=== PATIENT | female | born 2000 | race Caucasian/White ===

== ENCOUNTER 2021-01-12 13:53 | Emergency (ER) | payer SELFPAY ==
[~2021-01-12] VITALS: Ht 160 cm; Wt 65.9 kg
[2021-01-12 14:03] VITALS: TEMP 97.7
[2021-01-12 14:24] LABS: COLLECTION METHOD CLEAN CATCH
[2021-01-12 14:32] LABS: MUCOUS Present /lpf; PH 9 (5-8); URINE APPEARANCE Turbid; URINE BACTERIA None Seen /hpf; URINE BILIRUBIN Negative (NEGATIVE); URINE BLOOD 3+ (NEGATIVE); URINE COLOR Amber; URINE GLUCOSE Negative (NEGATIVE); URINE KETONE Negative (NEGATIVE); URINE LEUKOCYTE ESTERASE 2+ (NEGATIVE); URINE NITRATE Negative (NEGATIVE); URINE PROTEIN(semi-quant) 2+ (NEGATIVE); URINE RBC >50 /hpf; URINE UROBILINOGEN Negative (NEGATIVE)
[2021-01-12 14:33] LABS: BASO % 0.2 % (0.0-2.0); EOS # 0.1 (0.0-0.7); EOS % 0.4 % (0-4.0); GRAN # 10.6 (1.4-6.5); GRAN % 85.3 % (42.2-75.2); HEMATOCRIT 38.3 % (35.0-45.0); LYMPH # 1.1 (1.2-3.4); LYMPH % 9.1 % (20.0-51.0); MEAN CELL VOLUME 90 fl (80.0-95.0); MEAN CORPUSCULAR HEMOGLOBIN 31 pg (26.0-32.0); MEAN CORPUSCULAR HGB CONC 34 g/dl (33.0-37.0); MEAN PLATELET VOLUME 11.1 fl (7.4-10.4); MONO # 0.6 (0.1-0.6); MONO % 4.7 % (1.7-9.3); PLATELET COUNT 193 K/mm3 (130-400); RED BLOOD COUNT 4.25 M/mm3 (4.10-5.30); REDCELL DISTRIBUTION WIDTH-CV 13.5 % (11.5-14.5)
[2021-01-12 14:42] LABS: ALBUMIN 4.4 gm/dL (3.5-5.0); BILIRUBIN,TOTAL 0.5 mg/dL (0.0-1.0); CALCIUM 9.4 mg/dL (8.4-10.2); CREATININE, serum 0.42 (0.52-1.25); POTASSIUM 3.5 mmol/L (3.4-5.0); TOTAL PROTEIN 7.8 gm/dL (6.4-8.2)
[2021-01-12] MEDS ORDERED: VITAMIN B-625 MG PO (15:24)
[2021-01-12 15:38] VITALS: BP 98/61; PULSE 68
[2021-01-13] MEDS ORDERED: CEFTIN500 MG PO (15:43)
== END 2021-01-12 15:40 | disposition home or self-care (01) ==
LOC: COL.ER 13:53
PROVIDERS: Emergency Medicine
DX: O26.891 Other specified pregnancy related conditions, first trimester (principal); R10.31 Right lower quadrant pain; R10.32 Left lower quadrant pain; Z3A.11 11 weeks gestation of pregnancy
CPT/HCPCS: J7030

== ENCOUNTER 2021-07-31 05:40 | Inpatient (IN) | payer SELFPAY ==
[2021-07-31] VITALS (47 sets, daily range): BP systolic 89–139; BP diastolic 50–83; PULSE 60–88; TEMP 98.1–98.4
[~2021-07-31] VITALS: Ht 149.9 cm; Wt 62.3 kg
[~2021-07-31 05:40] MED LIST: CEFTIN500 MG PO; VITAMIN B-625 MG PO
--- NOTE | 2021-07-31 05:50 | NUR ---
Pt to unit via wheelchair for assessment, accompanied by spouse. Pt and spouse do not speak or understand Macedonian. Shank Cementer Hand used by admissions. Pt denies LOF or vaginal bleeding. SVE -2.
--- NOTE | 2021-07-31 06:30 | NUR ---
This RN assumes care. Plan discussed with patient. 0700: SVE per Melquiades Palafox: 4-2. Consents discussed with patient, translation provided. Assessment done. 0745: IV started. Labs obtained and to lab. LR infusing. Patient requesting epidura. Jm Burks CRNA notified. 0800: Patient reports gush of fluid. SROM at this time. Slightly green color noted. 0810: Difficulty tracing contractions due to maternal positions. TOCO adjusted. 0815: Patient sitting up on edge of the bed for epidural. Difficulty tracing FHR due to maternal position. Jm Burks CRNA at bedside. This RN translating at this time. Patient agrees with plan. 0832: Patient repositioned. Plan of care discussed. 0915: Dr. Joseph at bedside assessing FHR strip. SVE 2. No new orders given. 0935: Nava cath placed. Patient tolerates well. Patient LL with right leg stirrup.
[2021-07-31] MEDS ORDERED: PRENATAL TABLET PO (07:21)
[2021-07-31 08:03] LABS: BASO % 0.2 % (0.0-2.0); EOS % 0.1 % (0-4.0); GRAN # 12.3 K/mm3 (1.4-6.5); GRAN % 86.9 % (42.2-75.2); HEMOGLOBIN 11.8 g/dl (12.0-15.0); LYMPH # 1.2 K/mm3 (1.2-3.4); LYMPH % 8.2 % (20.0-51.0); MEAN CELL VOLUME 87 fl (80.0-95.0); MEAN CORPUSCULAR HEMOGLOBIN 29 pg (26.0-32.0); MEAN CORPUSCULAR HGB CONC 33 g/dl (33.0-37.0); MEAN PLATELET VOLUME 11.8 fl (7.4-10.4); MONO # 0.5 K/mm3 (0.1-0.6); MONO % 3.6 % (1.7-9.3); PLATELET COUNT 189 K/mm3 (130-400); RED BLOOD COUNT 4.09 M/mm3 (4.10-5.30); REDCELL DISTRIBUTION WIDTH-CV 13.2 % (11.5-14.5)
[2021-07-31 08:06] LABS: HEMATOCRIT 35.4 % (35.0-45.0)
--- NOTE | 2021-07-31 14:15 | NUR ---
Pitocin augmentation disucssed with patient and patient verbalizes understanding and agrees with plan. 1416: Pitocin started per protocol and plan of care discussed. 1730: SVE 10/100/+1 and patient begins to push with contractions. Dr. Joseph called and notified for delivery.
--- NOTE | 2021-07-31 17:45 | NUR ---
Patient continues to push with contractions. 175: Dr. Joseph at bedside. Patient prepped for vaginal delivery. 1754: Spontaneous vaginal delivery of viable female. Head followed by body. Infant bulbed syringed and to patient's abdomen. Barry Araya RN [facility] care of at the time. Cord clamped by physician and cut by FOB. Cord blood obtained. 1757: Spontaneous vaginal delivery of placenta. Pitocin bolus started per protocol. Fundal massage done. Perineum intact. Pericare done. Patient repositioned and ice pack applied. Fundal massage done and moderate bleeding noted. Plan of care discussed. Questions answered. 1804: Fundal massage done and bleeding within normal limits. 1814: Bedside report given to Chip PERKINS
[2021-08-01 07:10] VITALS: BP 101/59; PULSE 59; TEMP 98
[2021-08-01] MEDS ORDERED: IBU800 M1 PO (08:55)
--- NOTE | 2021-08-01 09:12 | NUR ---
Insitial visit; Parents thanked Riveting Machine Operator for offering them congratulations and God's blessings for the of their daughter. Riveting Machine Operator thanked them for choosing [facility].
[2021-08-01 12:00] VITALS: BP 111/62; PULSE 64; TEMP 97.8
[2021-08-01 16:00] VITALS: BP 101/74; PULSE 81; TEMP 98.2
[2021-08-01 18:30] VITALS: BP 96/59; PULSE 62; TEMP 97.8
[2021-08-02 07:40] VITALS: BP 98/59; PULSE 62; TEMP 97.8
== END 2021-08-02 12:50 | disposition home or self-care (01) | DRG 807 ==
LOC: LDRO 05:40 → EDBD 05:40 → LDR 07:09 → OB 07:09
PROVIDERS: Obstetrics & Gynecology; ADMIT Obstetrics & Gynecology
PROC: 10E0XZZ Delivery of Products of Conception, External Approach (ICD-10-PCS; principal; 2021-07-31)
DX: O77.0 Labor and delivery complicated by meconium in amniotic fluid (principal); Z37.0 Single live birth; O69.81X0 Labor and delivery complicated by cord around neck, without compression, not applicable or unspecified; Z3A.39 39 weeks gestation of pregnancy; Z23 Encounter for immunization
CPT/HCPCS: J2590; J7120

== ENCOUNTER 2021-09-03 12:41 | Emergency (ER) | payer SELFPAY ==
[~2021-09-03] VITALS: Ht 154.9 cm; Wt 55.5 kg
[~2021-09-03 12:41] MED LIST changes: +IBU800 M1 PO; +PRENATAL TABLET PO
[2021-09-03 13:06] VITALS: TEMP 98.1
[2021-09-03 13:52] LABS: COLLECTION METHOD CLEAN CATCH
[2021-09-03 14:01] LABS: PH 5 (5-8); SQUAMOUS EPITHELIAL 0-2 /hpf (0-10); URINE APPEARANCE Clear (CLEAR/HAZY); URINE BACTERIA None Seen (NONE SEEN); URINE BILIRUBIN Negative (NEGATIVE); URINE BLOOD 1+ (NEGATIVE); URINE COLOR Straw (YELLOW); URINE GLUCOSE Negative (NEGATIVE); URINE KETONE Negative (NEGATIVE); URINE LEUKOCYTE ESTERASE Negative (NEGATIVE); URINE NITRATE Negative (NEGATIVE); URINE PROTEIN(semi-quant) Negative (NEGATIVE); URINE RBC 0-2 /hpf (0-2); URINE UROBILINOGEN Negative (NEGATIVE)
[2021-09-03 14:20] LABS: TRICYCLIC ANTIDEPRESS URINE NEGATIVE
[2021-09-03 14:23] LABS: BASO % 0.1 % (0.0-2.0); EOS # 0.1 K/mm3 (0.0-0.7); EOS % 1.2 % (0-4.0); GRAN # 4.8 K/mm3 (1.4-6.5); GRAN % 70.8 % (42.2-75.2); LYMPH # 1.5 K/mm3 (1.2-3.4); LYMPH % 22.3 % (20.0-51.0); MEAN CELL VOLUME 89 fl (80.0-95.0); MEAN CORPUSCULAR HEMOGLOBIN 29 pg (26.0-32.0); MEAN CORPUSCULAR HGB CONC 32 g/dl (33.0-37.0); MEAN PLATELET VOLUME 11.2 fl (7.4-10.4); MONO # 0.3 K/mm3 (0.1-0.6); PLATELET COUNT 216 K/mm3 (130-400); RED BLOOD COUNT 3.85 M/mm3 (4.10-5.30); REDCELL DISTRIBUTION WIDTH-CV 13.8 % (11.5-14.5)
[2021-09-03 14:27] LABS: HEMATOCRIT 34.3 % (35.0-45.0)
[2021-09-03 14:42] LABS: ALANINE AMINOTRANSFERASE 43 U/L (0-55); ALBUMIN 4.1 gm/dL (3.5-5.0); ALKALINE PHOSPHATASE 108 U/L (40-150); ANION GAP 10 mmol/L (7-16); AST,SGOT 26 U/L (5-34); BILIRUBIN,TOTAL 0.4 mg/dL (0.2-1.2); BLOOD UREA NITROGEN 5 mg/dL (7-19); CARBON DIOXIDE 22 mmol/L (22-29); CHLORIDE 109 mmol/L (98-107); CREATININE, serum 0.62 mg/dL (0.57-1.11); GLUCOSE 92 mg/dL (70-99); POTASSIUM 3.8 mmol/L (3.5-4.5); SODIUM 141 mmol/L (136-145)
[2021-09-03 14:44] LABS: ACETAMINOPHEN < 1.0 ug/mL (10-30); ALCOHOL(ethanol),MEDICAL < 10 mg/dL (0-10); SALICYLATE < 5.0 mg/dL (15.0-30.0)
[2021-09-03 19:37] VITALS: BP 130/72; PULSE 77
== END 2021-09-03 23:44 | disposition home or self-care (01) ==
LOC: COL.ER 12:41
PROVIDERS: Physician Assistant
DX: R45.851 Suicidal ideations (principal)